=== PATIENT | male | born 1995 | race Caucasian/White ===

== ENCOUNTER 2016-11-11 08:30 | Emergency (ER) | payer OTHER ==
[~2016-11-11] VITALS: Ht 167.6 cm; Wt 59.0 kg
[~2016-11-11 08:30] MED LIST: ONDANSETRON HCL4 M2 PO; PHENERGAN 25 MG25 M1 PO; PROTONIX40 M1 PO; XANAX 0.5 MG0.5 MG PO; ZOLOFT100 MG PO
[2016-11-11] MEDS ORDERED: PHENERGAN 25 MG25 MG PO (08:38)
[2016-11-11 08:56] LABS: ABSOLUTE NEUTROPHILS 5.8 thou/uL (1.4-8.2); BASOPHILS 0.3 % (0.0-2.0); EOSINOPHILS 0.8 % (0.0-3.0); HEMATOCRIT 46.5 % (42.0-52.0); HEMOGLOBIN 16.1 gm/dL (14.0-18.0); LYMPHOCYTES 24.2 % (24.0-44.0); MCH 29.5 pg (26.0-34.0); MCHC 34.6 g/dL (28.0-37.0); MCV 85.1 fL (80.0-100.0); MONOCYTES 8.7 % (1.0-8.0); PLATELET COUNT 148 thou/uL (150-400); RBC 5.47 mil/uL (4.50-6.00); RDW 12.2 % (10.5-14.5); WBC 8.7 thou/uL (4.0-11.0)
[2016-11-11 08:57] LABS: MANUAL DIFF NO
[2016-11-11 09:06] LABS: CALCIUM 9.6 mg/dL (8.5-10.1); CREATININE 1.2 mg/dL (0.6-1.3); POTASSIUM 3.8 mmol/L (3.5-5.1)
[2016-11-11] MEDS ORDERED: ZOFRAN ODT4 MG PO (09:09)
[2016-11-11] MEDS ORDERED: PHENERGAN 25 MG25 M1 PO (09:09)
[2016-11-11 09:10] LABS: ALBUMIN 4.3 g/dL (3.4-5.0); DIRECT BILIRUBIN 0.1 mg/dL (<0.1-0.3); TOTAL BILIRUBIN 0.7 mg/dL (<0.1-1.0); TOTAL PROTEIN 7.7 g/dL (6.4-8.2)
== END 2016-11-11 10:02 | disposition home or self-care (01) ==
LOC: ER 08:30
PROVIDERS: Emergency Medicine
DX: G43.A0 Cyclical vomiting, in migraine, not intractable (principal); R19.7 Diarrhea, unspecified; Z90.49 Acquired absence of other specified parts of digestive tract; F17.210 Nicotine dependence, cigarettes, uncomplicated; F12.10 Cannabis abuse, uncomplicated

== ENCOUNTER 2016-11-11 16:37 | Observation (INO) | payer OTHER ==
[~2016-11-11] VITALS: Ht 152.4 cm; Wt 59.0 kg
--- NOTE | ~2016-11-11 | S ---
[facility] [place] [address] SURGICAL PATH RPT PROCEDURE Name: JUAN JOSE MONTOYA V Room #: 407-P KOFI Tucker#: [id number] Admission: 11/11/16 Date of : 89 Discharge: 11/13/16 Report #: [id number] Path Case #: [id number] PATHOLOGY REPORT COLLECTION DATE: 11/13/2016 RECEIVED DATE: 11/14/2016 SUBMITTING PHYS: Dr. Jonathan Hinds OTHER PHYS: Dr. Dorene Choi SPECIMEN(S) RECEIVED: A.Bx gastritis * * * * * * * * * * * * FINAL DIAGNOSIS: Gastric mucosa, gastritis, endoscopic biopsy: - Mild reactive gastropathy. - Negative for intestinal metaplasia or atrophy. - Negative for Helicobacter pylori. COMMENT: Helicobacter pylori immunohistochemical stain performed on block A1 negative. (IUV:csd; d/t: 11/15/2016) PATHOLOGIST: Mili Caldera M.D. REPORT ELECTRONICALLY SIGNED BY: Mili Caldera M.D. DATE/TIME: 11/15/2016 15:12 * * * * * * * * * * * * GROSS PATHOLOGY: Received in formalin labeled "Juan Jose Montoya and biopsy gastritis," are 3 segments of hassan soft tissue measuring 1.0 x 0.2 x 0.2 cm in aggregate dimensions and ranging from 0.3 to 0.4 cm in maximum dimension. The specimen is submitted entirely in cassette A1. (TTL; 11/14/2016) CLINICAL HISTORY: Cyclical vomiting INITIAL CPT CODE(S): A; 13458, 80585 Professional services performed by [facility] at [facility] [address], [place] [address] [facility] [address] [place] [address] SURGICAL PATH RPT PROCEDURE Name: JUAN JOSE MONTOYA V Room #: 407-P KOFI Tucker#: [id number] Admission: 11/11/16 Date of : 89 Discharge: 11/13/16 Report #: [id number] Path Case #: [id number] Technical services performed by [facility] at [address] [place] [address], [facility] [address] [place] [address]. [facility] [address] [place] [address] PHONE: [phone] DIRECTOR: Pepito Iraheta M.D. * * * END OF REPORT * * *
--- NOTE | ~2016-11-11 | P ---
[facility] [place] [address] PROCEDURE REPORT Name: JUAN JOSE MONTOYA V Room #: 407-P [facility]..#: [id number] Admission: 11/11/16 Attend Phys: Dorene Oreilly Discharge: Date of : 89 Report #: [id number] THIS REPORT FOR: //name// Jonathan Hinds MD COPIES TO: Dorene Oreilly MD PROCEDURE PERFORMED: Upper Endoscopy DATE OF PROCEDURE: 11/13/2016 DICTATED BY: Jonathan Hinds MD REFERRING PHYSICIAN: Dorene Oreilly MD SCOPE(S) USED: [id number] Sn: [id number] POSTPROCEDURE DIAGNOSES: Reflux esophagitis (see description), Gastritis MEDICATIONS GIVEN: (See Anesthesiologist Report) INDICATIONS: Nausea and Vomiting, Abdominal pain EXTENT OF EXAMINATION: Second part of the duodenum DESCRIPTION OF PROCEDURE: Informed consent was obtained with the benefits, risks, and alternatives to upper GI endoscopy explained, including the risk of perforation, and the patient agreed to proceed. See anesthesiologist report for patients ASA Classification. Patient re-Examined; and no interval changes noted from preoperative History and Physical. No contraindications were noted on physical exam. After being placed on the table, patient identification was verified prior to the procedure. Anesthesia administered by Maritza Pearson MD. (See Anesthesiologist report) Assessment of sedation: Complications- None. Cardiovascular- Stable. Orientation- Sedated. The procedure was performed with the patient in the left lateral decubitus position. The instrument was inserted to the second part of the duodenum. Estimated blood loss for the procedure was 0 ml. The patient tolerated the procedure well. There were no complications. The heart rate was normal. The oxygen saturation and skin color were normal. Upon discharge from the endoscopy area, the patient will be recovered per established procedures and protocols. In the lower third esophagus, grade B: (at least one mucosal break > 5 mm long, but not continuous between the tops of adjacent folds) ([place]) Reflux esophagitis was present. In the antrum, some patchy gastritis was seen. The gastritis had the following findings; erythematous, edematous. [facility] [address] [place] [address] PROCEDURE REPORT Name: JUAN JOSE MONTOYA V Room #: 407-P [facility]..#: [id number] Admission: 11/11/16 Attend Phys: Dorene Oreilly Discharge: Date of : 89 Report #: [id number] The duodenum was examined and no abnormalities were seen. SPECIMEN(S) OBTAINED: Container 1: Biopsy for Helicobacter pylori times multiple from antrum DISCHARGE INSTRUCTIONS: The patient was instructed to return to the hospital [facility] for ongoing care. Await biopsy results. Avoid aspirin and NSAIDS and other ulcerogenic medications if possible. Avoid caffeine, chocolate, mints, alcohol, nicotine, rich foods and red sauces as these increase acid reflux. Do not eat or drink anything for 2 hours prior to retiring. Advise patient to stop smoking. Continue pantoprazole 40 mg PO bid for six weeks, then attempt to reduce to once a day. <ELECTRONICALLY SIGNED> By: Jonathan Hinds MD 11/13/16 [phone] Jonathan Hinds MD /si
[2016-11-11 08:00] VITALS: BP 133/80
[~2016-11-11 16:37] MED LIST changes: +PHENERGAN 25 MG25 MG PO; +ZOFRAN ODT4 MG PO
[2016-11-11 16:40] VITALS: BP 131/71
[2016-11-11 19:12] VITALS: BP 121/74
[2016-11-11 19:51] VITALS: BP 133/80
[2016-11-11 23:01] LABS: CALCIUM 8.9 mg/dL (8.5-10.1); CREATININE 1.1 mg/dL (0.6-1.3); POTASSIUM 3.3 mmol/L (3.5-5.1); TOTAL BILIRUBIN 1.2 mg/dL (<0.1-1.0); TOTAL PROTEIN 6.8 g/dL (6.4-8.2)
[2016-11-12 00:47] LABS: AMP/METHAMP Negative (Negative); BARBITURATES Negative (Negative); BENZODIAZEPINES POSITIVE (Negative); COCAINE Negative (Negative); METHADONE Negative (Negative); OPIATES POSITIVE (Negative); PCP Negative (Negative); THC POSITIVE (Negative)
[2016-11-12 03:15] LABS: GLYCOHEMOGLOBIN (HGB A1C) 4.9 % (4.8-5.6)
[2016-11-12 05:48] LABS: ALBUMIN 3.7 g/dL (3.4-5.0); CALCIUM 8.9 mg/dL (8.5-10.1); CREATININE 0.9 mg/dL (0.6-1.3); MAGNESIUM 1.7 mg/dL (1.8-2.4); POTASSIUM 3.3 mmol/L (3.5-5.1); TOTAL BILIRUBIN 1.3 mg/dL (<0.1-1.0); TOTAL PROTEIN 6.3 g/dL (6.4-8.2)
[2016-11-12 08:00] VITALS: BP 122/72
[2016-11-12 13:00] VITALS: BP 128/83
[2016-11-12 16:00] VITALS: BP 137/91
[2016-11-12 19:00] VITALS: BP 109/86
[2016-11-12 19:54] VITALS: BP 109/83
[2016-11-13 05:14] VITALS: BP 104/67
[2016-11-13 08:00] VITALS: BP 147/85
[2016-11-13 16:00] VITALS: BP 112/63
[2016-11-14] MEDS ORDERED: ATIVAN1 MG PO (11:34)
== END 2016-11-13 18:03 | disposition home or self-care (01) ==
LOC: ER 16:37 → EROBS 17:37 → 4N 19:29
PROVIDERS: Hospitalist
DX: K20.9 Esophagitis, unspecified (principal); G43.A0 Cyclical vomiting, in migraine, not intractable; F17.210 Nicotine dependence, cigarettes, uncomplicated; Z90.49 Acquired absence of other specified parts of digestive tract
CPT/HCPCS: 62110; 62900

== ENCOUNTER 2016-11-14 07:33 | Emergency (ER) | payer OTHER ==
[~2016-11-14] VITALS: Ht 167.6 cm; Wt 59.0 kg
[2016-11-14 08:08] LABS: ABSOLUTE NEUTROPHILS 6.2 thou/uL (1.4-8.2); BASOPHILS 0.3 % (0.0-2.0); EOSINOPHILS 0.4 % (0.0-3.0); HEMATOCRIT 47.5 % (42.0-52.0); HEMOGLOBIN 16.6 gm/dL (14.0-18.0); LYMPHOCYTES 22.2 % (24.0-44.0); MCHC 34.9 g/dL (28.0-37.0); MCV 85.8 fL (80.0-100.0); MONOCYTES 8.8 % (1.0-8.0); PLATELET COUNT 156 thou/uL (150-400); POLYS 68.3 % (36.0-66.0); RBC 5.54 mil/uL (4.50-6.00); RDW 12.5 % (10.5-14.5); WBC 9.1 thou/uL (4.0-11.0)
[2016-11-14 08:09] LABS: CALCIUM 9.7 mg/dL (8.5-10.1); CREATININE 1.2 mg/dL (0.6-1.3); POTASSIUM 3.5 mmol/L (3.5-5.1)
[2016-11-14 08:12] LABS: MANUAL DIFF NO
[2016-11-14 08:13] LABS: ALBUMIN 4.5 g/dL (3.4-5.0); DIRECT BILIRUBIN 0.4 mg/dL (<0.1-0.3); TOTAL BILIRUBIN 2.5 mg/dL (<0.1-1.0); TOTAL PROTEIN 7.6 g/dL (6.4-8.2)
[2016-11-14 11:07] LABS: URINE BILIRUBIN NEGATIVE (Negative); URINE BLOOD TRACE (Negative); URINE COLOR YELLOW; URINE GLUCOSE-RANDOM* NEGATIVE (Negative); URINE KETONES 1+ (Negative); URINE LEUKOCYTES-REFLEX NEGATIVE (Negative); URINE PROTEIN (DIPSTICK) NEGATIVE (Negative); URINE UROBILINOGEN 0.2 E.U./dl (0.2-1.0)
[2016-11-14] MEDS ORDERED: ATIVAN1 MG PO (11:34)
== END 2016-11-14 12:15 | disposition home or self-care (01) ==
LOC: ER 07:33
PROVIDERS: Emergency Medicine
DX: G43.A0 Cyclical vomiting, in migraine, not intractable (principal); Z90.49 Acquired absence of other specified parts of digestive tract; Z88.8 Allergy status to other drugs, medicaments and biological substances; F17.210 Nicotine dependence, cigarettes, uncomplicated; F12.10 Cannabis abuse, uncomplicated

== ENCOUNTER 2017-02-03 09:17 | Inpatient (IN) | payer OTHER ==
[~2017-02-03] VITALS: Ht 129 cm; Wt 58.5 kg
[~2017-02-03 09:17] MED LIST changes: +ATIVAN1 MG PO
[2017-02-03 09:18] VITALS: BP 133/112
[2017-02-03 09:43] LABS: ABSOLUTE NEUTROPHILS 8.7 thou/uL (1.4-8.2); BASOPHILS 0.2 % (0.0-2.0); EOSINOPHILS 0.4 % (0.0-3.0); HEMATOCRIT 48.6 % (42.0-52.0); HEMOGLOBIN 16.8 gm/dL (14.0-18.0); LYMPHOCYTES 15.1 % (24.0-44.0); MCH 30.3 pg (26.0-34.0); MCHC 34.5 g/dL (28.0-37.0); MCV 87.8 fL (80.0-100.0); MONOCYTES 5.2 % (1.0-8.0); PLATELET COUNT 161 thou/uL (150-400); POLYS 79.1 % (36.0-66.0); RBC 5.53 mil/uL (4.50-6.00)
[2017-02-03 09:44] LABS: MANUAL DIFF NO
[2017-02-03 09:53] LABS: CALCIUM 9.7 mg/dL (8.5-10.1); CREATININE 1.1 mg/dL (0.7-1.3)
[2017-02-03 09:57] LABS: ALBUMIN 4.4 g/dL (3.4-5.0); DIRECT BILIRUBIN 0.2 mg/dL (<0.1-0.3); TOTAL BILIRUBIN 0.9 mg/dL (<0.1-1.0)
[2017-02-03 10:52] LABS: URINE BILIRUBIN NEGATIVE (Negative); URINE BLOOD TRACE (Negative); URINE COLOR YELLOW; URINE GLUCOSE-RANDOM* NEGATIVE (Negative); URINE KETONES TRACE (Negative); URINE NITRITE NEGATIVE (Negative); URINE PROTEIN (DIPSTICK) NEGATIVE (Negative); URINE UROBILINOGEN 0.2 E.U./dl (0.2-1.0)
[2017-02-03 11:01] LABS: AMP/METHAMP Negative (Negative); BARBITURATES Negative (Negative); BENZODIAZEPINES POSITIVE (Negative); COCAINE Negative (Negative); METHADONE Negative (Negative); OPIATES Negative (Negative); PCP Negative (Negative); THC POSITIVE (Negative)
[2017-02-03 14:16] VITALS: BP 115/69
[2017-02-03 14:40] VITALS: BP 127/76
[2017-02-03 19:15] VITALS: BP 109/59
[2017-02-04 05:31] VITALS: BP 120/51
[2017-02-04 08:21] VITALS: BP 101/48
[2017-02-04] MEDS ORDERED: XANAX 0.5 MG0.5 MG PO (10:26)
[2017-02-04 13:18] VITALS: BP 101/48
[2017-02-04 14:29] VITALS: BP 101/48
[2017-02-05] MEDS ORDERED: PHENERGAN 25 MG25 M1 PO (11:29)
== END 2017-02-04 13:30 | disposition home or self-care (01) | DRG 103 ==
LOC: ER 09:17 → 4S 13:16 → EROBS 13:16 → 4S 14:18
PROVIDERS: Emergency Medicine; Physician Assistant
DX: G43.A1 Cyclical vomiting, in migraine, intractable (principal); K58.9 Irritable bowel syndrome, unspecified; F17.210 Nicotine dependence, cigarettes, uncomplicated; F12.10 Cannabis abuse, uncomplicated; E86.0 Dehydration; Z88.8 Allergy status to other drugs, medicaments and biological substances; Z90.49 Acquired absence of other specified parts of digestive tract; Z79.899 Other long term (current) drug therapy
CPT/HCPCS: 10195

== ENCOUNTER 2017-02-05 10:43 | Emergency (ER) | payer OTHER ==
[~2017-02-05] VITALS: Ht 170.2 cm; Wt 59.0 kg
[2017-02-05 11:02] LABS: ABSOLUTE NEUTROPHILS 8.8 thou/uL (1.4-8.2); BASOPHILS 0.2 % (0.0-2.0); EOSINOPHILS 0.2 % (0.0-3.0); HEMATOCRIT 45.9 % (42.0-52.0); HEMOGLOBIN 15.8 gm/dL (14.0-18.0); LYMPHOCYTES 12.4 % (24.0-44.0); MCH 30.1 pg (26.0-34.0); MCHC 34.4 g/dL (28.0-37.0); MCV 87.6 fL (80.0-100.0); MONOCYTES 7.3 % (1.0-8.0); PLATELET COUNT 154 thou/uL (150-400); POLYS 79.9 % (36.0-66.0); RBC 5.24 mil/uL (4.50-6.00); RDW 12.6 % (10.5-14.5); WBC 11.1 thou/uL (4.0-11.0)
[2017-02-05 11:07] LABS: MANUAL DIFF NO
[2017-02-05 11:13] LABS: CALCIUM 9.7 mg/dL (8.5-10.1); CREATININE 1.1 mg/dL (0.7-1.3); POTASSIUM 3.4 mmol/L (3.5-5.1)
[2017-02-05 11:18] LABS: ALBUMIN 4.6 g/dL (3.4-5.0); TOTAL BILIRUBIN 1.2 mg/dL (<0.1-1.0)
[2017-02-05] MEDS ORDERED: PHENERGAN 25 MG25 M1 PO (11:29)
== END 2017-02-05 12:00 | disposition home or self-care (01) ==
LOC: ER 10:43
PROVIDERS: Physician Assistant
DX: G43.A1 Cyclical vomiting, in migraine, intractable (principal); R10.10 Upper abdominal pain, unspecified; F12.10 Cannabis abuse, uncomplicated; Z90.49 Acquired absence of other specified parts of digestive tract; Z88.8 Allergy status to other drugs, medicaments and biological substances; Z87.891 Personal history of nicotine dependence